=== PATIENT | female | born 1955 | race Two or more races ===

== ENCOUNTER 2023-03-26 15:11 | Emergency (ER) | payer OTHER ==
[~2023-03-26] VITALS: Ht 149.9 cm; Wt 72.6 kg
[2023-03-26] MEDS ORDERED: METFORMIN HCL500 M3 (15:14)
[2023-03-26] MEDS ORDERED: NORVASC5 MG (15:14)
== END 2023-03-26 16:10 | disposition home or self-care (01) ==
LOC: ER 15:12
DX: M79.642 Pain in left hand (principal)
CPT/HCPCS: 96372; 99284; J1100; J1885